=== PATIENT | female | born 1995 | race Caucasian/White ===

== ENCOUNTER 2024-02-10 02:18 | Emergency (ER) | payer OTHER ==
[~2024-02-10] VITALS: Ht 172.7 cm; Wt 74.8 kg
[2024-02-10 02:18] VITALS: TEMP 98.3
[2024-02-10] MEDS ORDERED: IBUPROFEN 400 MG TABLET ONE (03:42)
[2024-02-10] MEDS: IBUPROFEN 400 MG TABLET PO ONE (03:44)
[2024-02-10 04:32] VITALS: BP 123/75; O2SAT 99
== END 2024-02-10 04:33 | disposition home or self-care (01) ==
LOC: ER 02:25
DX: S43.402A Unspecified sprain of left shoulder joint, initial encounter (principal); W18.30XA Fall on same level, unspecified, initial encounter; Y93.89 Activity, other specified; Y92.89 Other specified places as the place of occurrence of the external cause; Y99.8 Other external cause status
CPT/HCPCS: 73030-TC

== ENCOUNTER 2025-07-06 22:25 | Emergency (ER) | payer OTHER ==
[~2025-07-06] VITALS: Ht 172.7 cm; Wt 74.8 kg
[2025-07-06 22:54] VITALS: TEMP 98
[2025-07-06 23:17] LABS: PLATELET COUNT (AUTO) 223 K/uL (150-450); RED BLOOD CELL COUNT(AUTO) 4.43 MIL/uL (4.0-5.2); RED CELL DISTRIBUTION WIDTH 13.7 % (11.5-15.0); WHITE BLOOD COUNT (AUTO) 7.7 K/uL (4.3-11.0)
[2025-07-06 23:23] LABS: APPEARANCE,URINE CLEAR (CLEAR); BLOOD, URINE 3+ Ery/uL (NEGATIVE); LEUKOCYTE ESTERASE ,URINE NEGATIVE (NEGATIVE); NITRITE, URINE NEGATIVE (NEGATIVE); UGLUCOSE NEGATIVE (NEGATIVE)
[2025-07-06 23:24] LABS: ADD URINE CULTURE NO; PREGNANCY TEST URINE QUAL NEGATIVE (NEGATIVE); SQUAMOUS EPITHELIAL CELL,UR Few /HPF (None Seen)
[2025-07-06 23:31] LABS: ASPARTATE AMINOTRANSFERASE 11.0 U/L (15-37); CALCIUM, SERUM 9.5 mg/dL (8.5-10.1); CREATININE 0.9 mg/dL (0.6-1.3); SODIUM SERUM 140.0 mmol/L (136-145); TOTAL PROTEIN, SERUM 7.1 g/dL (6.4-8.2); UREA NITROGEN, BLOOD 12.0 mg/dL (7-18)
[2025-07-07] MEDS ORDERED: CT SWABBABLE VALVE TRANS SET 1 EA INFUS.SET MC ONE (01:34)
[2025-07-07] MEDS ORDERED: IV NS 0.9% 250 ML IV ONE (01:34)
[2025-07-07] MEDS ORDERED: IOHEXOL-300 100 ML VIAL IV ONE (01:34)
[2025-07-07] MEDS ORDERED: SULI200T4 PO (02:54)
[2025-07-07] MEDS ORDERED: HYDR-4209 PO (02:55)
[2025-07-07 03:48] VITALS: BP 118/68; O2SAT 97
== END 2025-07-07 03:50 | disposition home or self-care (01) ==
LOC: ER 22:28
DX: R10.2 Pelvic and perineal pain (principal); R14.0 Abdominal distension (gaseous); N83.209 Unspecified ovarian cyst, unspecified side; N89.8 Other specified noninflammatory disorders of vagina; Z60.2 Problems related to living alone
CPT/HCPCS: 99285; 76856; 85025; 80048; 83690; 80076; 84703; 81001; 36415; 74177; J7050; Q9967